=== PATIENT | female | born 1945 | race Caucasian/White ===

== ENCOUNTER → 2016-09-19 | Outpatient (CLI) | payer MEDICARE, BC ==
--- NOTE | ~2016-09-19 | MY24 ---
[facility] A Service of [facility] & [facility] RADIOLOGY TEXT RESULTS PATIENT: WARREN GARCIA LOCATION: [facility] : 43 UNIT #: [id number] AGE: [address]: Vlad Agudelo MD SEX: F ORDER DR: [id number] [facility] [address] [place], [place] [address] [id number] O MR#: [id number] Acc #: [id number] NAME: WARREN GARCIA : 1945 SEX: F STUDY DATE/TIME: 09/19/2016 10:31 UNIT: [facility] ROOM: STUDY DESCRIPTION: DALTON OSPINA W/ DONNA UNI LT Attending Physician: Vlad Agudelo M.D. Referring Physician: Vlad Agudelo M.D. Ordering Physician: Vlad Agudelo M.D. Primary Care Physician: Vlad Agudelo M.D. MEDICAL IMAGING REPORT This report is preliminary unless electronic signature is present EXAM Unilateral left digital diagnostic mammogram with CAD device, 09/19/2016 HISTORY Screening mammogram obtained 02/29/2016 demonstrated a new nodule in the upper outer quadrant of the left breast. This persisted on spot compression 03/20/2016 and followup was recommended in 6 months to evaluate for stability. FINDINGS Unilateral left digital diagnostic mammogram was performed in craniocaudal, mediolateral oblique, mediolateral and exaggerated craniocaudal lateral views and spot compression was obtained of the nodule in the craniocaudal projection. The nodule persists following spot compression and compared with the previous diagnostic mammogram 03/20/2016 has increased in size slightly. Specifically, on the previous exam the nodule measured 6.0 mm and currently measures 9.0 mm in greatest diameter. Additionally, the border appears somewhat irregular and spiculated. Findings are concerning for possible neoplasm. Correlation with either stereotactic biopsy or needle localization and excision is recommended. Findings and recommendations were discussed with the patient at the time of the examination. Findings and recommendations were then called to Dr. Vlad Agudelo at 11:00 a.m. on 09/19/2016. No suspicious cluster of microcalcifications was seen. The films have been reviewed by an FDA-approved CAD device. IMPRESSION Interval increase in size of the nodule in the upper outer quadrant of the left breast compared with 03/20/2016. The nodule also appears slightly more irregular along its periphery. Findings are certainly suspicious for possible carcinoma. Correlation with either stereotactic biopsy or needle localization and excision is recommended. [facility] A Service of [facility] & [facility] RADIOLOGY TEXT RESULTS PATIENT: WARREN GARCIA LOCATION: [facility] : 44 UNIT #: [id number] AGE: [address]: Vlad Agudelo MD SEX: F ORDER DR: Patients over the age of 40 are entered into a reminder system with target due date for the next mammogram. A result letter will also be sent to the patient. BIRADS 4 Suspicious Abnormality; Biopsy Should Be Considered STAT * RESULT Dictated by... Yoseph Barger M.D. THIS IS AN ELECTRONICALLY VERIFIED REPORT Yoseph Barger M.D. at 09/19/2016 5:05 PM RAPHAEL/yusuf TD: 09/19/2016 11:28 JOB #: [id number] MEDICAL IMAGING REPORT Page 1 of 1 COPY
== END | disposition home or self-care (01) ==
LOC: CMAM 10:14
DX: R92.8 Other abnormal and inconclusive findings on diagnostic imaging of breast (principal); N63 Unspecified lump in breast
CPT/HCPCS: G0206

== ENCOUNTER → 2016-10-06 | Outpatient (CLI) | payer MEDICARE, BC ==
--- NOTE | ~2016-10-06 | MY22 ---
[facility] A Service of [facility] & [facility] RADIOLOGY TEXT RESULTS PATIENT: WARREN GARCIA LOCATION: [facility] : 44 UNIT #: [id number] AGE: [address]: Vlad Agudelo MD SEX: F ORDER DR: [id number] [facility] [address] [place], [place] [address] [id number] O MR#: [id number] Acc #: [id number] NAME: WARREN GARCIA. : 1945 SEX: F STUDY DATE/TIME: 10/06/2016 10:36 UNIT: [facility] ROOM: STUDY DESCRIPTION: DALTON BX Breast 1st Lesion Stereo Attending Physician: Vlad Agudelo M.D. Referring Physician: Vlad Agudelo M.D. Ordering Physician: Vlad Agudelo M.D. Primary Care Physician: Vlad Agudelo M.D. MEDICAL IMAGING REPORT This report is preliminary unless electronic signature is present REVISED REPORT SEE ADDENDUM EXAM Stereotactic left breast biopsy, 10/06 INDICATION Enlarging suspicious breast nodule in the upper outer left breast. Tissue sampling was recommended. PROCEDURE Informed consent was obtained and time-out was performed. The left breast was placed in [id number] compression. This skin was prepped with a ChloraPrep. The lesion in the deep upper outer left breast was targeted stereotactically. 1% lidocaine without epinephrine used for local anesthesia. Small skin incision was made. Then, a 9-gauge Eviva biopsy needle was advanced to the pre-fire position. The pre-fire images demonstrated appropriate needle heading. It needle was then fired into biopsy position. Post-fire images also demonstrated appropriate heading. Then, at target depth, multiple 9-gauge vacuum-assisted core biopsies were obtained in a concentric fashion. 1% lidocaine with epinephrine was infused through the needle during the biopsy. Specimen radiograph obtained demonstrates dense tissue within the cores. A biopsy marker was then left in place. Hemostasis was achieved using compression. There were no immediate complications. Postprocedure mammogram demonstrates the marking clip in the expected location in the upper outer left breast. The lesion seen on prior mammograms is largely obscured by lidocaine and the expected minimal postprocedure hematoma. IMPRESSION Successful stereotactic biopsy of a suspicious nodule in the deep upper outer left breast. Marking clip left in place. No immediate complication. [facility] A Service of [facility] & [facility] RADIOLOGY TEXT RESULTS PATIENT: WARREN GARCIA LOCATION: [facility] : 43 UNIT #: [id number] AGE: [address]: Vlad Agudelo MD SEX: F ORDER DR: Dictated by... Jj Astorga Jr., M.D. THIS IS AN ELECTRONICALLY VERIFIED REPORT Jj Astorga Jr., M.D. at 10/07/2016 7:20 AM Kay TD: 10/06/2016 20:18 JOB #: [id number] ADDENDUM Pathology results show infiltrating mammary carcinoma. Corresponding to poorly differentiated. Please see the full pathology report. Surgical and oncological consultation recommended. Imaging and pathology results are concordant. STAT * RESULT Dictated by... Jj Astorga Jr., M.D. THIS IS AN ELECTRONICALLY VERIFIED REPORT Jj Astorga Jr., M.D. at 10/10/2016 4:33 PM Cailin TD: 10/09/2016 15:55 JOB #: [id number] CC: Miracle/shereeision Please Delete MEDICAL IMAGING REPORT Page 1 of 1 COPY
== END | disposition home or self-care (01) ==
LOC: CWCC 09-26 10:00
DX: C50.912 Malignant neoplasm of unspecified site of left female breast (principal); C50.911 Malignant neoplasm of unspecified site of right female breast
CPT/HCPCS: 88305; 88342; 88360; G0204